=== PATIENT | female | born 1995 | race Two or more races ===

== ENCOUNTER 2022-03-11 18:08 | Emergency (ER) | payer MEDICARE, MEDICAID ==
[~2022-03-11] VITALS: Ht 157.5 cm; Wt 68.2 kg
[2022-03-11] MEDS ORDERED: LIDOCAINE 1% 10 ML VIAL PERC ONE (19:15)
[2022-03-11] MEDS ORDERED: PERTUSS(ACELL),DIPH,TET VAC/PF 0.5 ML SYRINGE IM. ONE (19:15)
[2022-03-11] MEDS ORDERED: BUPIVACAINE HCL/PF 0.25% 10 ML VIAL PERC ONE (19:15)
[2022-03-11] MEDS ORDERED: BACITRACIN 0.9 GM PACKET OINTMENT TP ONE (19:15)
[2022-03-11] MEDS ORDERED: CEPH-558 PO (20:13)
[2022-03-11] MEDS ORDERED: BACI28OI29 TP (20:15)
[2022-03-11 20:50] VITALS: BP 129/65
== END 2022-03-11 21:08 | disposition home or self-care (01) ==
LOC: EMS 18:08
DX: S61.213A Laceration without foreign body of left middle finger without damage to nail, initial encounter (principal); F41.9 Anxiety disorder, unspecified; W45.8XXA Other foreign body or object entering through skin, initial encounter; Y93.89 Activity, other specified; Y92.89 Other specified places as the place of occurrence of the external cause; Y99.8 Other external cause status
CPT/HCPCS: 12001; 73130; 90471; 90715; 99283; J3490 ×2